=== PATIENT | male | born 1995 | race Caucasian/White ===

== ENCOUNTER 2019-02-23 18:59 | Emergency (ER) | payer OTHER ==
[~2019-02-23] VITALS: Ht 188 cm; Wt 113.6 kg
[2019-02-23 19:00] VITALS: BP 139/85
[2019-02-23] MEDS ORDERED: NAPR-837 PO (19:45)
--- NOTE | 2019-02-24 07:14 | REP ---
Right shoulder three views : There is no fracture or dislocation. Mineralization and joint spaces are normal. There are no calcifications or foreign bodies. Impression: Negative right shoulder . Electronically Signed by Jett High MD 02/24/2019 07:06 A
== END 2019-02-23 19:48 | disposition home or self-care (01) ==
LOC: M ED 18:59
DX: S46.911A Strain of unspecified muscle, fascia and tendon at shoulder and upper arm level, right arm, initial encounter (principal); X58.XXXA Exposure to other specified factors, initial encounter; Y92.9 Unspecified place or not applicable; Y93.9 Activity, unspecified; Y99.9 Unspecified external cause status

== ENCOUNTER 2021-04-08 07:27 | Emergency (ER) | payer OTHER ==
[~2021-04-08] VITALS: Ht 188 cm; Wt 123.4 kg
[~2021-04-08 07:27] MED LIST: NAPR-837 PO
[2021-04-08] MEDS ORDERED: IBUP1TAB5 PO (07:37)
[2021-04-08] MEDS ORDERED: IBUP1TAB7 PO (07:37)
--- NOTE | 2021-04-08 07:59 | REP ---
INDICATION: trauma. COMPARISON: None. TECHNIQUE: Four views of the left hand are provided. FINDINGS: Four views of the left hand demonstrate dorsal and ulnar dislocation of the PIP joints of the long and ring finger. No fracture is visible at these PIP joints. There is however a obliquely oriented fracture through the distal diaphysis of the 5th metacarpal. There is slight override at fracture site. No other fracture is seen.. . No opaque foreign body noted. IMPRESSION: 1. Dorsal and ulnar dislocation of the PIP joints of the long and ring finger with associated soft tissue swelling. 2. Obliquely oriented fracture through the distal aspect of the 5th metacarpal with slight override. . <Electronically signed by Paul Patel > 04/08/21 [id number]
[2021-04-08] MEDS ORDERED: MORPHINE 4 MG/ML 1ML VIAL/SYRINGE (J2270) IV ONE (09:30)
[2021-04-08] MEDS ORDERED: ONDANSETRON 4MG/2ML VIAL IV ONE (09:30)
--- NOTE | 2021-04-08 10:40 | REP ---
INDICATION: post reduction L middle/ring fingers. COMPARISON: Left hand earlier today TECHNIQUE: Four views FINDINGS: The PIP joints of the 3rd and 4th digits have been relocated. Lucency in the volar plate of the middle phalanx of the 4th digit representing a volar plate fracture but not displaced. There are a couple of small bone fragments along the ulnar side of that PIP joint. The distal 5th metatarsal oblique fracture is again seen appearance unchanged from the previous study. IMPRESSION: 1. Relocation of the PIP joints of the 3rd and 4th digits with evidence for a volar plate avulsion of the middle phalanx at the PIP joint and a few small bone fragments along the ulnar side of that 4th PIP joint as well. 2. Unchanged appearance of a fracture of the distal 5th metatarsal, obliquely oriented, distracted and minimally displaced. <Electronically signed by Branden Howard > 04/08/21 [id number]
[2021-04-08] MEDS ORDERED: IBUP80TA PO (12:27)
[2021-04-08 12:31] VITALS: BP 133/78
== END 2021-04-08 12:37 | disposition home or self-care (01) ==
LOC: M ED 07:27
DX: S80.811A Abrasion, right lower leg, initial encounter (principal); S62.317A Displaced fracture of base of fifth metacarpal bone, left hand, initial encounter for closed fracture; S63.283A Dislocation of proximal interphalangeal joint of left middle finger, initial encounter; S63.285A Dislocation of proximal interphalangeal joint of left ring finger, initial encounter; W18.39XA Other fall on same level, initial encounter; Y92.59 Other trade areas as the place of occurrence of the external cause; Y93.B9 Activity, other involving muscle strengthening exercises; Y99.0 Civilian activity done for income or pay
CPT/HCPCS: 26770; 73130; 73140; 96374; 96375; 99284; J2270; J2405

== ENCOUNTER → 2021-09-05 | Outpatient (CLI) | payer OTHER ==
[~2021-09-05] MED LIST changes: +IBUP1TAB5 PO; +IBUP1TAB7 PO; +IBUP80TA PO
== END ==
LOC: M LABSMTC 13:26
PROVIDERS: ATTEND Pediatrics
DX: Z11.52 Encounter for screening for COVID-19 (principal)
CPT/HCPCS: C9803; U0003